=== PATIENT | female | born 1955 | race African-American/Black ===

== ENCOUNTER 2017-01-01 13:07 | Emergency (ER) | payer OTHER ==
[~2017-01-01] VITALS: Ht 165.1 cm; Wt 60.0 kg
[2017-01-01 13:08] VITALS: BP 153/87; PULSE 74; RESP 16; TEMP 98.3; O2SAT 100
[2017-01-01 14:45] VITALS: O2SAT 100
--- NOTE | 2017-01-01 15:35 | RADRPT ---
EXAM DATE/TIME: 01/01/2017 15:08 [facility] COMPARISON: No previous studies available for comparison. INDICATIONS : Chest discomfort. MEDICAL HISTORY : Asthma. SURGICAL HISTORY : None. ENCOUNTER: Initial ACUITY: 2 days PAIN SCORE: 4/10 LOCATION: Bilateral chest FINDINGS: A single view of the chest demonstrates the lungs to be symmetrically aerated without evidence of mas s, infiltrate or effusion. The cardiomediastinal contours are unremarkable. Osseous structures are intact. CONCLUSION: No acute disease. Adelfo Urbina MD on January 01, 2017 at 15:32 Board Certified Radiologist. This report was verified electronically.
[2017-01-01 15:44] LABS: AUTOMATED NEUTROPHIL # 6.7 TH/MM3 (1.8-7.7); BASOPHIL # 0.1 TH/MM3 (0-0.2); BASOPHIL % 1.1 % (0.0-2.0); EOSINOPHIL # 0.1 TH/MM3 (0-0.4); EOSINOPHIL % 0.6 % (0.0-4.0); HEMATOCRIT 38.2 % (35.0-46.0); HEMO FLAGS DIFF FINAL; LYMPH % 23.1 % (9.0-44.0); LYMPHOCYTE # 2.2 TH/MM3 (1.0-4.8); MEAN CELL VOLUME 79.6 FL (80.0-100.0); MEAN CORPUSCULAR HEMOGLOBIN 26.5 PG (27.0-34.0); MEAN CORPUSCULAR HGB CONC 33.3 % (32.0-36.0); MONO % 5.9 % (0.0-8.0); NEUT % 69.3 % (16.0-70.0); PLATELET COUNT 224 TH/MM3 (150-450); RED CELL DISTRIBUTION WIDTH 14.6 % (11.6-17.2); WHITE BLOOD COUNT 9.7 TH/MM3 (4.0-11.0)
--- NOTE | 2017-01-01 16:06 | RADRPT ---
EXAM DATE/TIME: 01/01/2017 15:45 [facility] COMPARISON: No previous studies available for comparison. INDICATIONS : Patient complains of headache and dizziness for 2 days. RADIATION DOSE: 34.49 CTDIvol (mGy) MEDICAL HISTORY : Hypertension. Cardiovascular disease SURGICAL HISTORY : Hysterectomy. fracture of mandible 2005 ENCOUNTER: Initial ACUITY: 2 days PAIN SCALE: 5/10 LOCATION: cranial TECHNIQUE: Multiple contiguous axial images were obtained of the head. Using automated exposure control and adj ustment of the mA and/or kV according to patient size, radiation dose was kept as low as reasonably a chievable to obtain optimal diagnostic quality images. FINDINGS: CEREBRUM: The ventricles are normal for age. No evidence of midline shift, mass lesion, hemorrhage or acute in farction. No extra-axial fluid collections are seen. POSTERIOR FOSSA: The cerebellum and brainstem are intact. The 4th ventricle is midline. The cerebellopontine angle i s unremarkable. EXTRACRANIAL: The visualized portion of the orbits is intact. SKULL: The calvaria is intact. No evidence of skull fracture. CONCLUSION: No acute disease. No evidence of acute infarct, hemorrhage, mass or edema. Adelfo Urbina MD on January 01, 2017 at 16:02 Board Certified Radiologist. This report was verified electronically.
[2017-01-01 16:08] LABS: BACTERIA, URINE RARE /hpf; BLOOD, URINE TRACE (NEG); CALCIUM OXALATE CRYSTALS,URINE OCC /hpf; GLUCOSE,URINE NEG (NEG); KETONE, URINE NEG (NEG); MUCUS URINE FEW /lpf (OCC); NITRITE,URINE NEG (NEG); PH, URINE 6.5 (5.0-8.5); SQUAMOUS EPITHELIAL CELL URINE 7 /hpf (0-5); URINE COLOR YELLOW (YELLW/STRAW)
[2017-01-01 16:09] LABS: COMMENT (UR) CULT NOT INDICATED; CULTURE IF INDICATED CULT NOT INDICATED
[2017-01-01 16:15] LABS: ALT (GPT) 15 U/L (10-53); ANION GAP 7 MEQ/L (5-15); AST (GOT) 10 U/L (15-37); BLOOD UREA NITROGEN 11 MG/DL (7-18); CHLORIDE 107 MEQ/L (98-107); GLOMERULAR FILTRATION RATE 83 ML/MIN (>89); MAGNESIUM 2.2 MG/DL (1.5-2.5); POTASSIUM 3.2 MEQ/L (3.5-5.1); SODIUM (NA) 141 MEQ/L (136-145)
[2017-01-01 16:24] LABS: ALKALINE PHOSPHATASE 89 U/L (45-117); TOTAL BILIRUBIN ADULT 0.5 MG/DL (0.2-1.0)
[2017-01-01 16:26] LABS: CREATINE KINASE 62 U/L (26-192)
--- NOTE | 2017-01-01 16:51 | PD ---
HPI Chief Complaint: Cardiac Complaint Time Seen by Provider: 16:43 Travel History International Travel<30 days: No Contact w/Intl Traveler<30days: No Traveled to known affect area: No History of Present Illness HPI 61-year-old female that presents to the ED for evaluation of palpitations and not wanting to eat. Per patient she's had this for the past 4 days. Per patient she's been having loss of weight for the past 4 days. Per patient she doesn't have an appetite. She denies any pain but she states that she's been feeling like her heart palpitates. Per patient he comes and goes. She does not feel this at this time. She does have a history of hep C but denies any history of heart disease in herself or others. She does not know how she got hep C. She tells me that last time she had a tested she was found to be nondetectable. She takes no medications for it. She denies any drug abuse or alcohol. She denies any abdominal pain. No Diarrhea or nausea or vomiting. Has not seen anybody for this. No fevers chills or sweats. No allergies to medication. She denies any history of heart arrhythmias. She is not taking anything for this. PFSH Past Medical History Hx Anticoagulant Therapy: No Cardiovascular Problems: Yes (HTN ) Diabetes: No Hypertension: Yes Medical other: Yes (HEP C) Past Surgical History Section: Yes Cholecystectomy: Yes Hysterectomy: Yes Other Surgery: Yes (HERNIA SX) Social History Alcohol Use: Yes Tobacco Use: No Substance Use: No Allergies-Medications (Allergen,Severity, Reaction): Coded Allergies: No Known Allergies (Unverified , 01/01/17) Review of Systems Except as stated in HPI: all other systems reviewed are Neg Physical Exam Narrative GENERAL: SKIN: Warm and dry. HEAD: Atraumatic. Normocephalic. EYES: Pupils equal and round. Rectal 4 mms reactive to light and accomodation. No scleral icterus. No injection or drainage. ENT: No nasal bleeding or discharge. Mucous membranes pink and moist. Tongue is midline. No uvula deviation. NECK: Trachea midline. No JVD. CARDIOVASCULAR: Regular rate and rhythm. No murmurs, S3, S4. RESPIRATORY: No accessory muscle use. Clear to auscultation. Breath sounds equal bilaterally. GASTROINTESTINAL: Abdomen soft, non-tender, nondistended. Hepatic and splenic margins not palpable. MUSCULOSKELETAL: Extremities without clubbing, cyanosis, or edema. No obvious deformities. Full range of motion of the upper and lower extremities bilaterally. 2+ pulses bilaterally. NEUROLOGICAL: Awake and alert. No obvious cranial nerve deficits. Motor grossly within normal limits. Five out of 5 muscle strength in the arms and legs. Normal speech. PSYCHIATRIC: Appropriate mood and affect; insight and judgment normal. Data Data Last Documented VS Vital Signs Date Time Temp Pulse Resp B/P Pulse Ox O2 Delivery O2 Flow Rate FiO2 01/01/17 13:08 98.3 74 16 153/87 100 Orders Vascular Access Team Consult/P PRN (01/01/17 14:44) Vascular Poc Ultrasound (01/01/17 ) Electrocardiogram (01/01/17 14:54) Complete Blood Count With Diff (01/01/17 14:54) Comprehensive Metabolic Panel (01/01/17 14:54) Ckmb (Isoenzyme) Profile (01/01/17 14:54) Troponin I (01/01/17 14:54) Prothrombin Time / Inr (Pt) (01/01/17 14:54) Act Partial Throm Time (Ptt) (01/01/17 14:54) Urinalysis - C+S If Indicated (01/01/17 14:54) Magnesium (Mg) (01/01/17 14:54) Thyroid Stimulating Hormone (01/01/17 14:54) Chest, Single Ap (01/01/17 14:54) Iv Access Insert/Monitor (01/01/17 14:54) Ecg Monitoring (01/01/17 14:54) Oximetry (01/01/17 14:54) Ct Brain W/O Iv Contrast(Rout) (01/01/17 ) Labs Laboratory Tests Test 01/01/17 01/01/17 15:10 15:30 White Blood Count 9.7 TH/MM3 Red Blood Count 4.80 MIL/MM3 Hemoglobin 12.7 GM/DL Hematocrit 38.2 % Mean Corpuscular Volume 79.6 FL Mean Corpuscular Hemoglobin 26.5 PG Mean Corpuscular Hemoglobin 33.3 % Concent Red Cell Distribution Width 14.6 % Platelet Count 224 TH/MM3 Mean Platelet Volume 8.3 FL Neutrophils (%) (Auto) 69.3 % Lymphocytes (%) (Auto) 23.1 % Monocytes (%) (Auto) 5.9 % Eosinophils (%) (Auto) 0.6 % Basophils (%) (Auto) 1.1 % Neutrophils # (Auto) 6.7 TH/MM3 Lymphocytes # (Auto) 2.2 TH/MM3 Monocytes # (Auto) 0.6 TH/MM3 Eosinophils # (Auto) 0.1 TH/MM3 Basophils # (Auto) 0.1 TH/MM3 CBC Comment DIFF FINAL Differential Comment Sodium Level 141 MEQ/L Potassium Level 3.2 MEQ/L Chloride Level 107 MEQ/L Carbon Dioxide Level 27.0 MEQ/L Anion Gap 7 MEQ/L Blood Urea Nitrogen 11 MG/DL Creatinine 0.84 MG/DL Estimat Glomerular Filtration 83 ML/MIN Rate Random Glucose 89 MG/DL Calcium Level 9.0 MG/DL Magnesium Level 2.2 MG/DL Total Bilirubin 0.5 MG/DL Aspartate Amino Transf 10 U/L (AST/SGOT) Alanine Aminotransferase 15 U/L (ALT/SGPT) Alkaline Phosphatase 89 U/L Total Creatine Kinase 62 U/L Troponin I LESS THAN 0.02 NG/ML Total Protein 8.3 GM/DL Albumin 4.0 GM/DL Thyroid Stimulating Hormone 0.954 uIU/ML 3rd Gen Urine Color YELLOW Urine Turbidity HAZY Urine pH 6.5 Urine Specific [place] 1.018 Urine Protein TRACE mg/dL Urine Glucose (UA) NEG mg/dL Urine Ketones NEG mg/dL Urine Occult Blood TRACE Urine Nitrite NEG Urine Bilirubin NEG Urine Urobilinogen LESS THAN 2.0 MG/DL Urine Leukocyte Esterase MOD Urine RBC 3 /hpf Urine WBC 6 /hpf Urine Squamous Epithelial 7 /hpf Cells Urine Calcium Oxalate Crystals OCC /hpf Urine Amorphous Sediment RARE Urine Bacteria RARE /hpf Urine Mucus FEW /lpf Microscopic Urinalysis Comment CULT NOT INDICATED MDM Medical Decision Making Medical Screen Exam Complete: Yes Emergency Medical Condition: Yes Medical Record Reviewed: Yes Interpretation(s) EKG here shows sinus rhythm with no sign of acute ischemia or arrhythmia. Read by me and attending. CBC & BMP Diagram 01/01/17 15:10 Troponin and CK negative UA shows UTI LFTS WNL Last Impressions Chest X-Ray 01/01/17 1454 Signed Impressions: Service Date/Time: Sunday, January 01, 2017 15:08 - CONCLUSION: No acute disease. Adelfo Urbina MD Head CT 01/01/17 0000 Signed Impressions: Service Date/Time: Sunday, January 01, 2017 15:45 - CONCLUSION: No acute disease. No evidence of acute infarct, hemorrhage, mass or edema. Adelfo Urbina MD Differential Diagnosis Generalized weakness versus UTI versus viral illness versus palpitations versus electrolyte abnormality versus dehydration versus atrial fibrillation Narrative Course 61-year-old female that presents to the ED for eval of palpitations and loss of appetite. Patient was properly examined and was found to have signs and symptoms of unclear etiology. Patient EKG as well as evaluation of being on monitor revealed no sign of arrhythmia. Patient complains of no pain or any other symptoms. Labs and imaging were ordered. Labs and imaging were essentially unremarkable. Urine did show UTI and this could be related to the symptoms. Patient was told this and agrees with plan. At this time we'll treat her symptoms with Bactrim for her urinary tract infection. She was told to follow with local physician. See ED if worsening symptoms. Case was discussed in my attending Dr Robins who agrees with plan. Diagnosis Primary Impression: UTI (urinary tract infection) Qualified Code: N30.01 - Acute cystitis with hematuria Patient Instructions: General Instructions Additional Instructions: Follow with PCP. Take medications as prescribed. Drink plenty of fluids. See ED for worsening symptoms. Med/Other Pt SpecificInfo: Prescription(s) given Disposition: 01 DISCHARGE HOME Condition: Stable Terry Ann Jan 01, 2017 16:51
[2017-01-01] MEDS ORDERED: AMLO10 PO (16:53)
[2017-01-01] MEDS ORDERED: CLON0.2T PO (16:53)
[2017-01-01] MEDS ORDERED: TRAZ50TA12 PO (16:53)
[2017-01-01] MEDS ORDERED: BACT800T5 PO (17:03)
[2017-01-01 17:10] LABS: APTT (PATIENT) 25.2 SEC (24.3-30.1); PROTHROMBIN TIME - PATIENT 10.8 SEC (9.8-11.6)
--- NOTE | 2017-01-01 18:09 | EKG ---
Date Performed: 01/01/2017 Time Performed: 14:28:36 PTAGE: 61 years EKG: Sinus rhythm WITH SHORT NV INTERVAL BORDERLINE ECG NO PREVIOUS TRACING DOCTOR: Dax Ponce Interpretating Date/Time 01/01/2017 18:07:50
== END 2017-01-01 17:48 | disposition home or self-care (01) ==
LOC: NEPC 13:07
DX: N30.01 Acute cystitis with hematuria (principal); R00.2 Palpitations; R63.0 Anorexia; R94.31 Abnormal electrocardiogram [ECG] [EKG]; I10 Essential (primary) hypertension; Z86.79 Personal history of other diseases of the circulatory system; Z86.19 Personal history of other infectious and parasitic diseases
CPT/HCPCS: 70450; 71010; 80053; 81001; 82550; 83735; 84443; 84484; 85025; 85610; 85730; 93005

== ENCOUNTER 2017-04-14 10:54 | Emergency (ER) | payer MEDICAID, OTHER ==
[~2017-04-14] VITALS: Ht 165.1 cm; Wt 68.0 kg
[~2017-04-14 10:54] MED LIST: AMLO10 PO; BACT800T5 PO; CLON0.2T PO; TRAZ50TA12 PO
[2017-04-14 10:56] VITALS: BP 187/90; PULSE 76; RESP 20; TEMP 98.5; O2SAT 100
[2017-04-14] MEDS ORDERED: PERC5TAB12 PO (12:35)
[2017-04-14] MEDS ORDERED: IBUP-232 PO (12:35)
--- NOTE | 2017-04-14 12:35 | PD ---
HPI Chief Complaint: Fall Time Seen by Provider: 12:14 Travel History International Travel<30 days: No Contact w/Intl Traveler<30days: No Traveled to known affect area: No History of Present Illness HPI Patient 61 years old. She reports a fall approximately one week ago having slipped on water. She landed on her right hip and on the right head. She's had no headache nausea vomiting visual change or weakness. She does complain of pain radiating down the right leg. She has been ambulatory. Leg pain is worse with ambulation. No additional complaint. PFSH Past Medical History Hx Anticoagulant Therapy: No Cardiovascular Problems: Yes Diabetes: No Hypertension: Yes Past Surgical History Section: Yes Cholecystectomy: Yes Hysterectomy: Yes Other Surgery: Yes (HERNIA SX) Social History Alcohol Use: No Tobacco Use: No Substance Use: No Allergies-Medications (Allergen,Severity, Reaction): Coded Allergies: Penicillins (Verified Allergy, Severe, Itching, 04/14/17) ceftriaxone (Verified Allergy, Severe, Itching, 04/14/17) erythromycin base (Verified Allergy, Severe, Nausea/Vomiting, 04/14/17) Reported Meds & Prescriptions Reported Meds & Active Scripts Active Ibuprofen 600 Mg Tab 600 Mg PO Q8HR PRN Percocet (Oxycodone-Acetaminophen) 5-325 mg Tab 2 Tab PO Q6H PRN Reported Trazodone (Trazodone HCl) 50 Mg Tab 50 Mg PO HS Norvasc (Amlodipine Besylate) 10 Mg Tab 10 Mg PO DAILY Clonidine (Clonidine HCl) 0.2 Mg Tab 0.2 Mg PO DAILY Review of Systems Except as stated in HPI: all other systems reviewed are Neg General / Constitutional: No: Fever Physical Exam Narrative GENERAL: 61-year-old female no acute distress SKIN: Warm and dry. HEAD: Atraumatic. Normocephalic. EYES: Pupils equal and round. No scleral icterus. No injection or drainage. ENT: No nasal bleeding or discharge. Mucous membranes pink and moist. NECK: Trachea midline. No JVD. CARDIOVASCULAR: Regular rate and rhythm. RESPIRATORY: No accessory muscle use. Clear to auscultation. Breath sounds equal bilaterally. GASTROINTESTINAL: Abdomen soft, non-tender, nondistended. Hepatic and splenic margins not palpable. MUSCULOSKELETAL: Extremities without clubbing, cyanosis, or edema. No obvious deformities. Minimal tenderness to palpation overlying the right iliac crest. NEUROLOGICAL: Awake and alert. No obvious cranial nerve deficits. Motor grossly within normal limits. Five out of 5 muscle strength in the arms and legs. Normal speech. PSYCHIATRIC: Appropriate mood and affect; insight and judgment normal. Data Data Last Documented VS Vital Signs Date Time Temp Pulse Resp B/P (MAP) Pulse Ox O2 Delivery O2 Flow Rate FiO2 04/14/17 12:50 04/14/17 10:56 98.5 76 20 100 Room Air Blood pressure 187/90 Orders Orders Ibuprofen (Motrin) (04/14/17 12:45) MDM Medical Decision Making Medical Screen Exam Complete: Yes Emergency Medical Condition: Yes Medical Record Reviewed: Yes Differential Diagnosis Fracture, sciatica, intracranial hemorrhage Narrative Course Patient's primary complaint is the right leg sciatica. She is stable for discharge. Diagnosis Primary Impression: Sciatica of right side Additional Instructions: You have a choice when it comes to health care, and we are glad that you chose [facility]. Hopefully, we have met your expectations on today's visit. You are welcome to return to [facility] at any time, as we are committed to meeting the health care needs of our community. Med/Other Pt SpecificInfo: Prescription(s) given Scripts Ibuprofen (Ibuprofen) 600 Mg Tab 600 MG PO Q8HR Y for PAIN SCALE 5 TO 10, #30 TAB 0 Refills Prov: Samy Platt MD 04/14/17 Oxycodone-Acetaminophen (Percocet) 5-325 mg Tab 2 TAB PO Q6H Y for PAIN SCALE 6 TO 10, #12 TAB 0 Refills Prov: Samy Platt MD 04/14/17 Disposition: 01 DISCHARGE HOME Condition: Stable Samy Platt MD Apr 14, 2017 12:35
[2017-04-14] MEDS ORDERED: IBUPROFEN 600 MG TAB PO ONE (12:45)
== END 2017-04-14 14:29 | disposition home or self-care (01) ==
LOC: NEPD 10:54
DX: M54.31 Sciatica, right side (principal)
CPT/HCPCS: 99283

== ENCOUNTER 2017-11-01 14:27 | Emergency (ER) | payer MEDICAID ==
[~2017-11-01 14:27] MED LIST changes: -BACT800T5 PO; +IBUP-232 PO; +PERC5TAB12 PO
[2017-11-01 14:30] VITALS: BP 214/107; PULSE 124; RESP 20; TEMP 98.7; O2SAT 99
[2017-11-01] MEDS ORDERED: SODIUM CHLOR 0.9% 1000 ML INJ 1,000 ML IV SCH (14:55)
[2017-11-01] MEDS ORDERED: MORPHINE SULFATE 4 MG/ML INJ IV PUSH ONE (15:00)
[2017-11-01] MEDS ORDERED: SODIUM CHLORIDE 0.9% FLUSH 10 ML FLUSH IV FLUSH PRN (15:00)
[2017-11-01] MEDS ORDERED: ONDANSETRON HCL 4 MG/2 ML VIAL IVP ONE (15:00)
--- NOTE | 2017-11-01 15:36 | PD ---
HPI Chief Complaint: GI Complaint Time Seen by Provider: 14:39 Travel History International Travel<30 days: No Contact w/Intl Traveler<30days: No Traveled to known affect area: No History of Present Illness HPI 62-year-old female with PMH of hypertension, presents to the ED for evaluation of 2 week history of difficulties with swallowing. Patient states that initially she would have intermittent pain but was able to swallow solids and fluids. She states that over the last 24-48 hours she has severe 10/10 sharp pain and immediately regurgitates any solids or liquids that she attempts to consume. She denies hematemesis. She denies chest pain, palpitations, shortness of breath. She endorses abdominal bloating, states she had a small, solid, nonbloody bowel movement this morning. She denies dysuria, hematuria, lower extremity edema. She endorses distant history of colonoscopy. She has never had an EGD. No treatment attempted at home. She endorses history of hepatitis C, states that she was treated 4 years ago" has undetectable levels." PFSH Past Medical History Hx Anticoagulant Therapy: No Cardiovascular Problems: Yes Diabetes: No Hypertension: Yes Past Surgical History Section: Yes Cholecystectomy: Yes Hysterectomy: Yes Other Surgery: Yes (HERNIA SX) Social History Alcohol Use: No Tobacco Use: No Substance Use: No Allergies-Medications (Allergen,Severity, Reaction): Coded Allergies: Penicillins (Verified Allergy, Severe, Itching, 04/14/17) ceftriaxone (Verified Allergy, Severe, Itching, 04/14/17) erythromycin base (Verified Allergy, Severe, Nausea/Vomiting, 04/14/17) Reported Meds & Prescriptions Reported Meds & Active Scripts Active Bisacodyl EC (Bisacodyl) 5 Mg Tabec 5 Mg PO DAILY PRN Ingraham (Hydrocodone-Acetaminophen) 5 Mg-325 Mg Tab 1 Tab PO Q6H PRN Omeprazole 20 Mg Tab 20 Mg PO DAILY Ibuprofen 600 Mg Tab 600 Mg PO Q8HR PRN Percocet (Oxycodone-Acetaminophen) 5-325 mg Tab 2 Tab PO Q6H PRN Reported Trazodone (Trazodone HCl) 50 Mg Tab 50 Mg PO HS Norvasc (Amlodipine Besylate) 10 Mg Tab 10 Mg PO DAILY Clonidine (Clonidine HCl) 0.2 Mg Tab 0.2 Mg PO DAILY Review of Systems Except as stated in HPI: all other systems reviewed are Neg Physical Exam Narrative GENERAL: Well-nourished, well-developed female in no acute distress. SKIN: Focused skin assessment warm, diaphoretic HEAD: Normocephalic. EYES: No scleral icterus. No injection or drainage. NECK: Supple, trachea midline. No JVD or lymphadenopathy. CARDIOVASCULAR: Regular rate and rhythm without murmurs, gallops, or rubs. CHEST: Tender to palpation of her the left and right lower chest. Without deformity or crepitus. No retractions or use of accessory muscles. RESPIRATORY: Breath sounds clear and equal bilaterally. No accessory muscle use. GASTROINTESTINAL: Abdomen soft, nondistended. Tender to palpation in the epigastric region. No palpable masses. Active bowel sounds. MUSCULOSKELETAL: No cyanosis, or edema. BACK: Nontender without obvious deformity. No CVA tenderness. Data Data Last Documented VS Vital Signs Date Time Temp Pulse Resp B/P (MAP) Pulse Ox O2 Delivery O2 Flow Rate FiO2 11/01/17 18:49 11/01/17 17:34 82 18 100 Room Air 11/01/17 14:30 98.7 Orders Orders Complete Blood Count With Diff (11/01/17 14:55) Comprehensive Metabolic Panel (11/01/17 14:55) Lipase (11/01/17 14:55) Prothrombin Time / Inr (Pt) (11/01/17 14:55) Act Partial Throm Time (Ptt) (11/01/17 14:55) Iv Access Insert/Monitor (11/01/17 14:55) Ecg Monitoring (11/01/17 14:55) Oximetry (11/01/17 14:55) Morphine Inj (Morphine Inj) (11/01/17 15:00) Ondansetron Inj (Zofran Inj) (11/01/17 15:00) Sodium Chlor 0.9% 1000 Ml Inj (Ns 1000 M (11/01/17 14:55) Sodium Chloride 0.9% Flush (Ns Flush) (11/01/17 15:00) Gastrografin Swallow (11/01/17 ) Electrocardiogram (11/01/17 ) Chest, Single Ap (11/01/17 ) Troponin I (11/01/17 14:55) Diatrizoate Liq ( Gastroview Liq) (11/01/17 16:30) Ranitidine Liq (Zantac Liq) (11/01/17 17:15) Famotidine (Pepcid) (11/01/17 17:45) Ed Discharge Order (11/01/17 18:10) Morphine Inj (Morphine Inj) (11/01/17 18:15) Labs Laboratory Tests Test 11/01/17 13:30 White Blood Count 10.1 TH/MM3 Red Blood Count 4.74 MIL/MM3 Hemoglobin 12.7 GM/DL Hematocrit 38.4 % Mean Corpuscular Volume 81.0 FL Mean Corpuscular Hemoglobin 26.7 PG Mean Corpuscular Hemoglobin Concent 32.9 % Red Cell Distribution Width 15.0 % Platelet Count 233 TH/MM3 Mean Platelet Volume 8.1 FL Neutrophils (%) (Auto) 78.5 % Lymphocytes (%) (Auto) 13.5 % Monocytes (%) (Auto) 5.9 % Eosinophils (%) (Auto) 1.7 % Basophils (%) (Auto) 0.4 % Neutrophils # (Auto) 7.9 TH/MM3 Lymphocytes # (Auto) 1.4 TH/MM3 Monocytes # (Auto) 0.6 TH/MM3 Eosinophils # (Auto) 0.2 TH/MM3 Basophils # (Auto) 0.0 TH/MM3 CBC Comment DIFF FINAL Differential Comment Prothrombin Time 10.0 SEC Prothromb Time International Ratio 1.0 RATIO Activated Partial Thromboplast Time 24.5 SEC Blood Urea Nitrogen 10 MG/DL Creatinine 0.95 MG/DL Random Glucose 102 MG/DL Total Protein 8.2 GM/DL Albumin 3.8 GM/DL Calcium Level 8.7 MG/DL Alkaline Phosphatase 93 U/L Aspartate Amino Transf (AST/SGOT) 16 U/L Alanine Aminotransferase (ALT/SGPT) 20 U/L Total Bilirubin 0.3 MG/DL Sodium Level 142 MEQ/L Potassium Level 3.6 MEQ/L Chloride Level 107 MEQ/L Carbon Dioxide Level 28.5 MEQ/L Anion Gap 7 MEQ/L Estimat Glomerular Filtration Rate 72 ML/MIN Troponin I LESS THAN 0.02 NG/ML Lipase 75 U/L MDM Medical Decision Making Medical Screen Exam Complete: Yes Emergency Medical Condition: Yes Differential Diagnosis Esophageal dysmotility versus esophageal foreign body versus Schatzki ring versus hiatal hernia versus GERD versus other Narrative Course 62-year-old female with PMH of hypertension, presents to the ED for evaluation of 2 week history of difficulties with swallowing. Patient states that initially she would have intermittent pain but was able to swallow solids and fluids. She states that over the last 24-48 hours she has severe 10/10 sharp pain and immediately regurgitates any solids or liquids that she attempts to consume. She denies hematemesis, CP, SOB. She has never had an EGD. No treatment attempted at home. She endorses history of hepatitis C, states that she was treated 4 years ago" has undetectable levels." BP 214/107, pulse 124 in triage, this improves to pulse of 82, BP 141/85 in the exam room. On exam she has epigastric tenderness to palpation but it is otherwise unremarkable. Patient was administered 1 L normal saline, 4 mg Zofran, 4 mg morphine, 150 mg grams Zantac IV. EKG rate 79, sinus rhythm. MD interval 134, QRS 90, QTc 432 ms. Normal axis. No acute ST changes. Reviewed by Dr. Ibarra CXR: No acute cardia pulmonary disease. Cardiac enzymes negative 1. Gastrografin swallow: Minimal distal esophageal fold thickening raising the possibility of minimal esophagitis. GERD noted. CBC, CMP, coags without concerning abnormalities Discussed the results of the workup with the patient. On recheck she reports improvement but not resolution of her symptoms. She was administered 20 mg of Pepcid and 2 mg morphine. She is instructed to follow-up with the [facility] urologist. She is provided a brief course of Ingraham, omeprazole, bisacodyl. She was provided gastritis diet information. She indicated understanding of the instructions. She is stable and discharged home. Diagnosis Primary Impression: GERD (gastroesophageal reflux disease) Qualified Codes: K21.0 - Gastro-esophageal reflux disease with esophagitis Referrals: Ita Reina MD Patient Instructions: Diet for Stomach Ulcers and Gastritis (ED), Gastroesophageal Reflux Disease (ED), General Instructions Additional Instructions: Rest, hydrate. Begin omeprazole as prescribed. Eat a bland diet for the next few days and gradually reintroduce new foods. Follow-up with the bellhop service captain as discussed. Return to the ED for worsening symptoms or any urgent or emergent medical condition. Med/Other Pt SpecificInfo: Prescription(s) given Scripts Bisaconafisa GARCÍA (Bisacodyl EC) 5 Mg Tabec 5 MG PO DAILY Y for CONSTIPATION, #10 TAB 0 Refills Prov: Shilpa Ibarra MD 11/01/17 Hydrocodone-Acetaminophen (Ingraham) 5 Mg-325 Mg Tab 1 TAB PO Q6H Y for PAIN, #12 TAB 0 Refills Prov: Shilpa Ibarra MD 11/01/17 Omeprazole (Omeprazole) 20 Mg Tab 20 MG PO DAILY, #30 TAB 0 Refills Prov: Shilpa Ibarra MD 11/01/17 Disposition: 01 DISCHARGE HOME Condition: Stable Ema Gonzales Nov 01, 2017 15:36
[2017-11-01 15:49] LABS: AUTOMATED NEUTROPHIL # 7.9 TH/MM3 (1.8-7.7); BASOPHIL % 0.4 % (0.0-2.0); EOSINOPHIL # 0.2 TH/MM3 (0-0.4); EOSINOPHIL % 1.7 % (0.0-4.0); HEMATOCRIT 38.4 % (35.0-46.0); HEMOGLOBIN 12.7 GM/DL (11.6-15.3); LYMPH % 13.5 % (9.0-44.0); LYMPHOCYTE # 1.4 TH/MM3 (1.0-4.8); MEAN CORPUSCULAR HEMOGLOBIN 26.7 PG (27.0-34.0); MEAN CORPUSCULAR HGB CONC 32.9 % (32.0-36.0); MEAN PLATELET VOLUME 8.1 FL (7.0-11.0); MONO % 5.9 % (0.0-8.0); MONOCYTE # 0.6 TH/MM3 (0-0.9); NEUT % 78.5 % (16.0-70.0); PLATELET COUNT 233 TH/MM3 (150-450); RED BLOOD COUNT 4.74 MIL/MM3 (4.00-5.30); WHITE BLOOD COUNT 10.1 TH/MM3 (4.0-11.0)
[2017-11-01 16:17] LABS: ALBUMIN 3.8 GM/DL (3.4-5.0); ALT (GPT) 20 U/L (10-53); AST (GOT) 16 U/L (15-37); BICARBONATE 28.5 MEQ/L (21.0-32.0); BLOOD UREA NITROGEN 10 MG/DL (7-18); CALCIUM 8.7 MG/DL (8.5-10.1); CHLORIDE 107 MEQ/L (98-107); CREATININE 0.95 MG/DL (0.50-1.00); GLOMERULAR FILTRATION RATE 72 ML/MIN (>89); GLUCOSE,RANDOM 102 MG/DL (74-106); SODIUM (NA) 142 MEQ/L (136-145)
[2017-11-01 16:22] LABS: ALKALINE PHOSPHATASE 93 U/L (45-117); TOTAL BILIRUBIN ADULT 0.3 MG/DL (0.2-1.0); TOTAL PROTEIN 8.2 GM/DL (6.4-8.2); TROPONIN I LESS THAN 0.02 NG/ML (0.02-0.05)
[2017-11-01] MEDS ORDERED: DIATRIZOATE MEGLUM/DIATRIZOATE SOD 120 ML BTL (for RAD DIAG) PO ONE (16:30)
[2017-11-01 16:42] VITALS: O2SAT 97
--- NOTE | 2017-11-01 16:50 | RADRPT ---
EXAM DATE/TIME: 11/01/2017 15:56 [facility] COMPARISON: CHEST SINGLE AP, January 01, 2017, 15:08. INDICATIONS : Chest pain. MEDICAL HISTORY : Hypertension. Cardiovascular disease SURGICAL HISTORY : Hysterectomy. fracture of mandible 2005 ENCOUNTER: Initial ACUITY: 1 day PAIN SCORE: 0/10 LOCATION: Bilateral chest FINDINGS: A single view of the chest demonstrates the lungs to be symmetrically aerated without evidence of mas s, infiltrate or effusion. The cardiomediastinal contours are unremarkable. Osseous structures are intact. CONCLUSION: 1. No acute cardiopulmonary disease. Amadou Graf MD on November 01, 2017 at 16:48 Board Certified Radiologist. This report was verified electronically.
--- NOTE | 2017-11-01 16:57 | RADRPT ---
EXAM DATE/TIME: 11/01/2017 16:10 [facility] COMPARISON: No previous studies available for comparison. INDICATIONS : Evaluate for dysphagia. FLUORO TIME: 1.8 minutes IMAGE COUNT: 28 CONTRAST: 1. Gastrografin (Diatrizoate Meglumine and Diatrizoate Sodium) Liquid E-Z Paque Barium Sulfate (60% w/v, 41% w.w) MEDICAL HISTORY : Hypertension. Cardiovascular disease SURGICAL HISTORY : Hysterectomy. fracture of mandible 2005 ENCOUNTER: Initial ACUITY: 1 day PAIN SCORE: 0/10 LOCATION: Chest. FINDINGS: Both Gastrografin and barium were given to the patient for evaluation of the esophagus. There is mini mal distal esophageal fold thickening raising the possibility of minimal esophagitis. Gastroesophagea l reflux is noted. No distal esophageal mass is noted. CONCLUSION: 1. Minimal distal esophageal fold thickening raising the possibility of minimal esophagitis. 2. Gastroesophageal reflux is noted. Wilman Beasley MD on November 01, 2017 at 16:51 Board Certified Radiologist. This report was verified electronically.
[2017-11-01] MEDS ORDERED: OMEP20TA93 PO (17:10)
[2017-11-01] MEDS ORDERED: RANITIDINE HCL SYRUP 150 MG/10 ML UDC PO ONE (17:15)
[2017-11-01 17:34] VITALS: BP 141/85; PULSE 82; RESP 18; O2SAT 100
[2017-11-01] MEDS ORDERED: FAMOTIDINE 20 MG TAB PO ONE (17:45)
[2017-11-01] MEDS ORDERED: MORPHINE SULFATE 2 MG/ML SYRINGE IV PUSH ONE (18:15)
[2017-11-01] MEDS ORDERED: NORC5TAB PO (18:22)
[2017-11-01] MEDS ORDERED: FLEE5TAB PO (18:22)
--- NOTE | 2017-11-02 16:48 | EKG ---
Date Performed: 11/01/2017 Time Performed: 15:48:16 PTAGE: 62 years EKG: Sinus rhythm NORMAL ECG Since the PREVIOUS TRACING , no significant change noted PREVIOUS TRACIN01/01/2017 14.28 DOCTOR: Elsa Urbina Interpretating Date/Time 11/02/2017 16:47:17
== END 2017-11-01 19:25 | disposition home or self-care (01) ==
LOC: NEPE 14:27
DX: K21.0 Gastro-esophageal reflux disease with esophagitis (principal); I10 Essential (primary) hypertension; B19.20 Unspecified viral hepatitis C without hepatic coma; Z88.1 Allergy status to other antibiotic agents; Z88.0 Allergy status to penicillin
CPT/HCPCS: 71045; 74220; 80053; 83690; 84484; 85025; 85610; 85730; 93005; 96361; 96374; 96375; 96376; 99285; J2270; J2405; J7030; Q9963

== ENCOUNTER 2018-03-14 02:59 | Observation (INO) ==
[2018-03-14 03:49] LABS: Baso # (Auto) 0.1 th/mm3 (0.0-0.2); Baso % (Auto) 0.7 % (0.0-2.0); Eos # (Auto) 0.3 th/mm3 (0.0-0.4); Eos % (Auto) 2.8 % (0.0-4.0); Hematocrit 30.6 % (35.0-46.0); Hemoglobin 10.6 gm/dL (11.6-15.3); Lymph # (Auto) 1.4 th/mm3 (1.0-4.8); Lymph % (Auto) 15.4 % (9.0-44.0); Mean Corpuscular HGB Conc 34.7 % (32.0-36.0); Mean Corpuscular Hemoglobin 27.7 pg (27.0-34.0); Mean Corpuscular Volume 79.9 fL (80.0-100.0); Mean Platelet Volume 7.4 fL (7.0-11.0); Mono # (Auto) 1.1 th/mm3 (0.0-0.9); Mono % (Auto) 11.4 % (0.0-8.0); Neut # (Auto) 6.6 th/mm3 (1.8-7.7); Neut % (Auto) 69.7 % (16.0-70.0); Platelet Count 266 th/mm3 (150-450); Red Blood Count 3.83 mil/mm3 (4.00-5.30); Red Cell Distribution Width 13.9 % (11.6-17.2); White Blood Count 9.4 th/mm3 (4.0-11.0)
[2018-03-14] MEDS ORDERED: Morphine Sulfate Inj 2 MG/ML Vial IV.PUSH ONE (03:54)
[2018-03-14] MEDS ORDERED: Sod Chloride 0.9% Inj 1,000 ML IV.SIG SCH (04:00)
[2018-03-14 04:05] LABS: Alanine Aminotransferase 20 U/L (10-53); Albumin 3.2 g/dL (3.4-5.0); Anion Gap 10 meq/L (5-15); Aspartate Aminotransferase 16 U/L (15-37); Blood Urea Nitrogen 11 mg/dL (7-18); Calcium 8.6 mg/dL (8.5-10.1); Carbon Dioxide 27.5 meq/L (21.0-32.0); Chloride 106 meq/L (98-107); Glomerular Filtration Rate 84 mL/min (>89); Glucose,Random 108 mg/dL (74-106); Lipase 68 U/L (73-393); Potassium 3.6 meq/L (3.5-5.1); Sodium 143 meq/L (136-145)
[2018-03-14 04:09] LABS: Alkaline Phosphatase 110 U/L (45-117); Total Protein 7.9 g/dL (6.4-8.2)
--- NOTE | 2018-03-14 04:39 | ED ---
HPI General Chief Complaint: Abdominal Pain Stated Complaint: ABD Pain/Evac Time Seen by Provider: 03/14/18 03:25 Source: patient Mode of arrival: ambulatory History of Present Illness HPI narrative: 62-year-old woman who presents to ED with 5 days of gradually worsening abdominal pains. Present in the periumbilical location pain is started to radiate to the left flank. It is associated with constipation and the patient states that she has not had a full bowel movement in at least 7-10 days although she reports still passing gas and having small bowel movements. No nausea or vomiting. Pain is constant but the severity will wax and wane with the pain occasionally becoming very intense before it subsides. No chest pain or dyspnea. No hematuria, hematochezia, hematemesis. No urinary frequency or dysuria. MD complaint: abdominal pain Onset (ago): day(s) (five) Pain Consistency: constant and colicky Location: periumbilical Severity: severe Quality: cramping and sharp Radiation: L flank Associated symptoms: constipation Related Data Home Medications Medication Instructions Recorded Confirmed amlodipine [Norvasc] 10 mg PO DAILY 03/14/18 03/14/18 clonidine HCl 0.2 mg PO TID 03/14/18 03/14/18 Allergies Allergy/AdvReac Type Severity Reaction Status Date / Time ceftriaxone Allergy Severe Itching Verified 04/14/17 11:17 erythromycin base Allergy Severe Nausea/Vomi Verified 04/14/17 11:17 ting Penicillins Allergy Severe Itching Verified 04/14/17 11:17 Review of Systems ROS: all other systems reviewed are negative Gastrointestinal Reports abdominal pain, Denies melena, Denies hematochezia, Reports constipation , Reports cramping, Denies diarrhea, Denies loose stools, Denies nausea, Denies vomiting and Denies hematemesis [facility] Medical History Medical History Hernia, inguinal (Acute) Hypertension (Acute) Wrist fracture (Acute) Surgical History Surgical History History of mandibular surgery (Acute) Hx of section (Acute) Social History Social History Substance History: No History of Abuse Smoking Status: Current every day smoker Tobacco Type: Cigarettes How Often Do You Have a Drink Containing Alcohol: Never Recent Travel in [facility] within the Last 8 Weeks: No Immunization History Tetanus Immunization: Unsure Hx Influenza Vaccine This Season: No Exam Narrative Exam Narrative: GENERAL: 62-year-old woman lying on stretcher with grimace of pain on her face. No companions at bedside at time of my exam. SKIN: Focused skin assessment warm/dry. HEAD: Atraumatic. Normocephalic. EYES: Pupils equal and round. No scleral icterus. No injection or drainage. ENT: No nasal bleeding or discharge. Mucous membranes pink and moist. NECK: Trachea midline. No JVD. CARDIOVASCULAR: Regular rate and rhythm. No murmur appreciated. RESPIRATORY: No accessory muscle use. Clear to auscultation. Breath sounds equal bilaterally. GASTROINTESTINAL: Abdomen soft, no significant tenderness on palpation, patient subjective Vitaliy reported pain seems out of proportion with that found on exam, nondistended. Hepatic and splenic margins not palpable. MUSCULOSKELETAL: No obvious deformities. No clubbing. No cyanosis. No edema. NEUROLOGICAL: Awake and alert. No obvious cranial nerve deficits. Motor grossly within normal limits. Normal speech. PSYCHIATRIC: Appropriate mood and affect; insight and judgment normal. Course Reevaluation(s) Reevaluation #1: Patient's pain improved after medication. Awaiting results of CTA for blood lactate was negative. Time: 05:32 Reevaluation #2: Discussed results of CT and labs with patient. Patient states her pain is somewhat improved but still present and she is hesitant to go home because she does not think she can control the pain at all. Discussed at length recommendation that she try laxatives to help reduce the stool in her colon and that it was very important that she follow-up with her primary care doctor to get a colonoscopy. Told patient that the lesion in her colon is most likely cancer and therefore colonoscopy would be the method to diagnose it. Also informed patient that any delay care results in poor outcomes. Time: 06:01 Consultations Consultation #1: Spoke with Dr. Uriel Mcelroy's regarding patient's case. She will admit patient for treatment of intractable abdominal pain likely secondary to what appears to be a colon cancer with associated constipation. Time: 06:09 Initial Documented Vital Signs Temperature 99.1 F 03/14/18 03:08 Pulse Rate 94 H 03/14/18 03:08 Respiratory Rate 18 03/14/18 03:08 Blood Pressure 158/77 H 03/14/18 03:08 Pulse Oximetry 99 03/14/18 03:08 Last Documented Vital Signs Temperature 99.1 F 03/14/18 03:08 Pulse Rate 86 03/14/18 05:30 Respiratory Rate 18 03/14/18 05:30 Blood Pressure 151/72 H 03/14/18 05:30 Pulse Oximetry 96 03/14/18 05:30 Medical Decision Making MDM Narrative Medical decision making narrative: Elderly woman who presents with colicky periumbilical plate pain that is now radiating to the left flank this is been building over the course of at least 5-7 days and is associated with constipation over however she is still passing gas and passing small amounts of stool so I doubt small bowel obstruction. Abdominal exam demonstrates no signs of peritonitis and in fact her subjective report of pain seems out of proportion to the tenderness observed on my exam; therefore, I will order a CTA of the abdominal arteries to evaluate for mesenteric ischemia also order lactic acid measurements. It is possible that the patient's symptoms patient of ACS, but I think this is less likely intra-abdominal cause, perhaps even just constipation. However will obtain ECG and troponin measurement. Treat patient' s pain with IV morphine and treat patient's nausea with Zofran give fluids IV bolus Medical Screen Exam Complete: Yes Emergency Medical Condition: Yes Differential Diagnosis Differential Diagnosis: Mesenteric ischemia versus constipation versus partial SBO versus colonic obstruction versus atypical presentation of ACS Lab Data Result diagrams: 03/14/18 03:37 03/14/18 03:37 Lab Results 03/14/18 03/14/18 03/14/18 Range/Units 03:37 03:37 03:37 WBC 9.4 (4.0-11.0) th/mm3 RBC 3.83 L (4.00-5.30) mil/mm3 Hgb 10.6 L (11.6-15.3) gm/dL Hct 30.6 L (35.0-46.0) % MCV 79.9 L (80.0-100.0) fL MCH 27.7 (27.0-34.0) pg MCHC 34.7 (32.0-36.0) % RDW 13.9 (11.6-17.2) % Plt Count 266 (150-450) th/mm3 MPV 7.4 (7.0-11.0) fL Neut % (Auto) 69.7 (16.0-70.0) % Lymph % (Auto) 15.4 (9.0-44.0) % [place] % (Auto) 11.4 H (0.0-8.0) % Eos % (Auto) 2.8 (0.0-4.0) % Baso % (Auto) 0.7 (0.0-2.0) % Neut # (Auto) 6.6 (1.8-7.7) th/mm3 Lymph # (Auto) 1.4 (1.0-4.8) th/mm3 [place] # (Auto) 1.1 H (0.0-0.9) th/mm3 Eos # (Auto) 0.3 (0.0-0.4) th/mm3 Baso # (Auto) 0.1 (0.0-0.2) th/mm3 WBC Differential . Differential Comment Auto diff final Sodium 143 (136-145) meq/L Potassium 3.6 (3.5-5.1) meq/L Chloride 106 (98-107) meq/L Carbon Dioxide 27.5 (21.0-32.0) meq/L Anion Gap 10 (5-15) meq/L BUN 11 (7-18) mg/dL Creatinine 0.83 (0.50-1.00) mg/dL Estimated GFR 84 L (>89) mL/min Random Glucose 108 H (74-106) mg/dL Lactic Acid 1.1 (0.4-2.0) mmol/L Calcium 8.6 (8.5-10.1) mg/dL Total Bilirubin 0.3 (0.2-1.0) mg/dL AST 16 (15-37) U/L ALT 20 (10-53) U/L Alkaline Phosphatase 110 (45-117) U/L Troponin I Less than 0.02 L (0.02-0.05) ng/mL Total Protein 7.9 (6.4-8.2) g/dL Albumin 3.2 L (3.4-5.0) g/dL Lipase 68 L (73-393) U/L Imaging Data Radiologist's impression: Abdomen CTA 03/14/18 03:56 CONCLUSION: 1. Large amount of stool in the ascending and transverse portions of the colon with a discrete transition at the splenic flexure. Descending colon is decompressed. No obvious mass lesion. Endoscopy may be warranted for further evaluation of this region. 2. I do not see CT findings of mesenteric ischemia. There may be mild impression of the median arcuate ligament on the central portion of the celiac axis but the celiac, SMA and RAMONITA are all patent. 3. 3.9 cm right adnexal cyst. In a 62-year-old woman, this warrants follow-up. I would recommend a pelvic ultrasound in 3 months to ensure stability. ECG Data Attestation: I personally reviewed and interpreted this ECG as follows: Interpretation: Rate 88 bpm rhythm normal sinus, VA interval 148 ms, QRS interval 102 ms, QTc interval 414 ms, no significant ST depression or elevation , no T-wave changes observed, this ECG is not consistent with STEMI. Discharge Plan Discharge Disposition Patient Disposition: 30 Still Patient Discharge Condition Condition: Fair Discharge Details Diagnosis: Intractable abdominal pain, Constipation, Lesion of colon Physicians Team ED Provider: Reynaldo Alarcon Attending Provider: Maddy Wiley Rxs /Orders / Referrals /Forms Prescriptions: No Action clonidine HCl 0.2 mg Tablet 0.2 mg PO TID RF: 0 amlodipine [Norvasc] 10 mg Tablet 10 mg PO DAILY RF: 0 Discharge Interventions Interventions: Vital Signs Last Done: 03/14/18 05:30 Status ED Status: Admitted Observation Patient
--- NOTE | 2018-03-14 05:44 | CT ---
EXAM DATE: 03/14/2018 5:15 AM EDT AGE/SEX: 62 years / Female INDICATIONS: Left side abdominal pain, evaluate for mesenteric ischemia. CLINICAL DATA: This is the patient's initial encounter. Patient reports that signs and symptoms have been present for 1 day and indicates a pain score of 10/10. MEDICAL/SURGICAL HISTORY: Hypertension. Inguinal hernia. None. RADIATION DOSE: 7.77 CTDI (mGy) COMPARISON: No prior exams available for comparison. TECHNIQUE: Volumetric scanning was performed using a multi-row detector CT scanner during bolus infu shannan of 100 ml Omnipaque 350 (iohexol) nonionic water-soluble contrast as a single exam dose. . The data was post processed with a variety of visualization algorithms including full volume maximum int ensity projection, multi-planar sliding thin slab reformation, curved planar reformation, and surface rendering techniques. Using automated exposure control and adjustment of the mA and/or kV according to patient size, radiation dose was kept as low as reasonably achievable to obtain optimal diagnosti c quality images. DICOM format image data is available electronically for review and comparison. FINDINGS: Abdominal Aorta: Abdominal aorta is normal in caliber throughout its length. There is a single left w ith a main and accessory right renal artery. Renal vessels are all patent. There is some mild central stenosis of the celiac with inferior displacement of the same possibly representing impression from the median arcuate ligament. However, the SMA and RAMONITA are widely patent Pelvis: Iliac vessels are patent bilaterally with no significant atherosclerotic calcification Miscellaneous: Patient is status post cholecystectomy and probable hysterectomy. Large amount of stoo l is identified in the ascending and transverse portions of the colon with a discrete transition near the splenic flexure. The entire descending and sigmoid portions of the colon are decompressed. Nonsp ecific 3.9 cm cyst in the expected location of the right adnexa. The appendix is identified and is ra diographically normal. CONCLUSION: 1. Large amount of stool in the ascending and transverse portions of the colon with a discrete trans ition at the splenic flexure. Descending colon is decompressed. No obvious mass lesion. Endoscopy may be warranted for further evaluation of this region. 2. I do not see CT findings of mesenteric ischemia. There may be mild impression of the median arcua te ligament on the central portion of the celiac axis but the celiac, SMA and RAMONITA are all patent. 3. 3.9 cm right adnexal cyst. In a 62-year-old woman, this warrants follow-up. I would recommend a p elvic ultrasound in 3 months to ensure stability. Electronically signed by: Fuad Chance MD 03/14/2018 5:42 AM EDT
[2018-03-14] MEDS ORDERED: Bisacodyl 10 MG Supp RECTAL PRN (06:15)
[2018-03-14] MEDS: Sod Chloride 0.9% Inj 1,000 ML IV.CONT SCH ×3 (07:59→21:46)
[2018-03-14] MEDS: Morphine Inj 4 MG/ML Vial IV.PUSH PRN ×3 (07:59→21:45)
--- NOTE | 2018-03-14 09:18 | P.HP ---
History of Present Illness Service: [facility] Primary Care Physician: Paulino Venegas Chief Complaint: Abdominal pain History of Present Illness: Patient is a very pleasant 62-year-old female with history of hypertension who last Saturday 3 days prior to admission started complaining of lower abdominal pain radiating to the mainly on the left lower quadrant area radiating to the left upper quadrant area to of epigastric which she described like severe tightening up. This was worse with movement with deep breaths cannot even move with slight movements. Feels bloating and feels badly getting "big", pain so severe that prompted patient to come in here and was admitted for further evaluation. Patient denies any nausea vomiting fever or chills. States her bowel movements are irregular usually every 2-3 days. Denies any straining denies any hematochezia or melena. Denies any reflux symptoms. Patient states she had a colonoscopy done in 2002 which was reportedly normal. On ER evaluation here at the ER CAT scan of the abdomen showed no mesenteric ischemia, significant amount of stools all the way up to the splenic flexure. Patient currently states passing out very little flatus. But denies any nausea or vomiting. Appears comfortable at this time. Patient states her last bowel movement was about a week ago. [facility] - History History Provided By: Patient - Medical History Medical History: Medical History (Last Reviewed 03/14/18 @ 05:30 by Reynaldo Alarcon MD) Hernia, inguinal Hypertension Wrist fracture - Surgical History Surgical History: Surgical History (Last Reviewed 03/14/18 @ 05:30 by Reynaldo Alarcon MD) History of mandibular surgery Hx of section - Tobacco History Second Hand Smoke Exposure: No Tobacco Use In Past 30 Days: Yes Smoking Status: Current some day smoker Tobacco Type: Cigarettes - Alcohol History How Often Do You Have a Drink Containing Alcohol: 2 to 4 times a month - Substance Use History Substance History: No History of Abuse - Travel History Recent Travel in the [facility] Within the Last 8 Weeks: No - Immunization History Tetanus Immunization: Unsure Hx Influenza Vaccine This Season: No Medications and Allergies Active Medications: Active Medications Al Hydroxide/Mg Hydroxide (Milk Of Magnadelia Liq) 30 ml PO Q12H PRN PRN Reason: Mild Constipation Last Admin: 03/14/18 07:58 Dose: 30 ml Bisacodyl (Dulcolax Supp) 10 mg RECTAL DAILY PRN PRN Reason: SEVERE CONSITIPATION Last Admin: 03/14/18 07:59 Dose: 10 mg Heparin Sodium (Porcine) (Heparin Inj) 5,000 units SQ Q8HR [facility] Sodium Chloride (Ns Inj) 1,000 mls @ 0 mls/hr IV.SIG BOLUS [facility] Last Infusion: 03/14/18 04:41 Dose: Infused Sodium Chloride (Ns Inj) 1,000 mls @ 100 mls/hr IV.CONT .Q10H [facility] Last Admin: 03/14/18 07:59 Dose: 100 mls/hr Lactulose (Lactulose Liq) 30 ml PO DAILY [facility] Morphine Sulfate (Morphine Inj) 4 mg IV.PUSH Q4H PRN PRN Reason: pain > 5 Last Admin: 03/14/18 07:59 Dose: 4 mg Ondansetron HCl (Zofran Inj) 4 mg IV.PUSH Q6H PRN PRN Reason: NAUSEA OR VOMITING Polyethylene Glycol (Miralax) 17 gm PO DAILY [facility] Sennosides (Senokot) 17.2 mg PO Q12H PRN PRN Reason: Moderate Constipation Last Admin: 03/14/18 07:59 Dose: 17.2 mg Sodium Chloride (Ns Flush) 2 ml IV.FLUSH PRN PRN PRN Reason: FLUSH AFTER USING IV ACCESS Allergies Allergy/AdvReac Type Severity Reaction Status Date / Time ceftriaxone Allergy Severe Itching Verified 04/14/17 11:17 erythromycin base Allergy Severe Nausea/Vomi Verified 04/14/17 11:17 ting Penicillins Allergy Severe Itching Verified 04/14/17 11:17 Home Medications Medication Instructions Recorded Confirmed Type amlodipine [Norvasc] 10 mg PO DAILY 03/14/18 03/14/18 History clonidine HCl 0.2 mg PO TID 03/14/18 03/14/18 History Exam Vital signs: Vital Signs 03/14/18 03:08 03/14/18 03:20 03/14/18 04:09 Temperature 99.1 F Pulse Rate 94 H 93 H Respiratory Rate 18 18 16 Blood Pressure 158/77 H 145/73 H Pulse Oximetry 99 99 03/14/18 05:30 03/14/18 07:30 03/14/18 08:27 Temperature 98.6 F Pulse Rate 86 88 70 Respiratory Rate 18 20 20 Blood Pressure 151/72 H 150/70 H 148/60 H Pulse Oximetry 96 96 Intake & Output 03/13/18 03/14/18 03/14/18 18:59 06:59 18:59 Intake Total 1000 / 1000 0 / 0 Balance 1000 / 1000 0 / 0 Weight 81 kg Intake: IV 1000 / 1000 NS Inj 1,000 ML @ Wide Open IV. 1000 / 1000 SIG BOLUS [facility] Rx#:[id number] Oral 0 / 0 Other: Date of Last Bowel Movement 03/13/18 Narrative: Patient is awake alert oriented 3 not in any form of distress Anicteric sclerae Neck was supple no nuchal rigidity Chest lungs bilateral breath sounds equal no rales no wheezes Heart regular rhythm no murmur Abdomen is soft but distended no guarding no rigidity not tender on exam currently Extremities no edema Neurologic exam is nonfocal Results - Labs CBC & Chem 7: 03/15/18 18:29 03/15/18 18:29 Labs: Laboratory Results - last 24 hr 03/14/18 03/14/18 03/14/18 03:37 03:37 03:37 WBC 9.4 RBC 3.83 L Hgb 10.6 L Hct 30.6 L MCV 79.9 L MCH 27.7 MCHC 34.7 RDW 13.9 Plt Count 266 MPV 7.4 Neut % (Auto) 69.7 Lymph % (Auto) 15.4 [place] % (Auto) 11.4 H Eos % (Auto) 2.8 Baso % (Auto) 0.7 Neut # (Auto) 6.6 Lymph # (Auto) 1.4 [place] # (Auto) 1.1 H Eos # (Auto) 0.3 Baso # (Auto) 0.1 WBC Differential . Differential Comment Auto diff final Sodium 143 Potassium 3.6 Chloride 106 Carbon Dioxide 27.5 Anion Gap 10 BUN 11 Creatinine 0.83 Estimated GFR 84 L Random Glucose 108 H Lactic Acid 1.1 Calcium 8.6 Total Bilirubin 0.3 AST 16 ALT 20 Alkaline Phosphatase 110 Troponin I Less than 0.02 L Total Protein 7.9 Albumin 3.2 L Lipase 68 L - Imaging Impressions Abdomen CTA 03/14/18 03:56 CONCLUSION: 1. Large amount of stool in the ascending and transverse portions of the colon with a discrete transition at the splenic flexure. Descending colon is decompressed. No obvious mass lesion. Endoscopy may be warranted for further evaluation of this region. 2. I do not see CT findings of mesenteric ischemia. There may be mild impression of the median arcuate ligament on the central portion of the celiac axis but the celiac, SMA and RAMONITA are all patent. 3. 3.9 cm right adnexal cyst. In a 62-year-old woman, this warrants follow-up. I would recommend a pelvic ultrasound in 3 months to ensure stability. Caprini VTE Risk Assessment Caprini VTE Risk Assessment: No/Low Risk (score <= 1) Caprini Risk Assessment Model: Point Value = 1 Point Value = 2 Point Value = 3 Point Value = 5 Age 41-60 Minor surgery BMI > 25 kg/m2 Swollen legs Varicose veins or History of unexplained or recurrent spontaneous Oral contraceptives or hormone replacement Sepsis (< 1 month) Serious lung disease, including pneumonia (< 1 month) Abnormal pulmonary function Acute myocardial infarction Congestive heart failure (< 1 month) History of inflammatory bowel disease Medical patient at bed rest Age 61-74 Arthroscopic surgery Major open surgery (> 45 min) Laparoscopic surgery (> 45 min) Malignancy Confined to bed (> 72 hours) Immobilizing plaster cast Central venous access Age >= 75 History of VTE Family history of VTE Factor V Leiden Prothrombin [id number] Lupus anticoagulant Anticardiolipin antibodies Elevated serum homocysteine Heparin-induced thrombocytopenia Other congenital or acquired thrombophilia Stroke (< 1 month) Elective arthroplasty Hip, pelvis, or leg fracture Acute spinal cord injury (< 1 month) Prophylaxis Regimen: Total Risk Factor Score Risk Level Prophylaxis Regimen 0-1 Low Early ambulation 2 Moderate Order ONE of the following: *Sequential Compression Device (SCD) *Heparin 5000 units SQ BID 3-4 Higher Order ONE of the following medications: *Heparin 5000 units SQ TID *Enoxaparin/Lovenox 40 mg SQ daily (WT < 150 kg, CrCl > 30 mL/min) *Enoxaparin/Lovenox 30 mg SQ daily (WT < 150 kg, CrCl > 10-29 mL/min) *Enoxaparin/Lovenox 30 mg SQ BID (WT < 150 kg, CrCl > 30 mL/min) AND/OR *Sequential Compression Device (SCD) 5 or more Highest Order ONE of the following medications: *Heparin 5000 units SQ TID (Preferred with Epidurals) *Enoxaparin/Lovenox 40 mg SQ daily (WT < 150 kg, CrCl > 30 mL/min) *Enoxaparin/Lovenox 30 mg SQ daily (WT < 150 kg, CrCl > 10-29 mL/min) *Enoxaparin/Lovenox 30 mg SQ BID (WT < 150 kg, CrCl > 30 mL/min) AND *Sequential Compression Device (SCD) Assessment and Plan - Plan 62-year-old female presenting with abdominal pain, no nausea no vomiting, no reflux symptoms no weight loss with constipation. Patient denies any use of narcotics or pain meds. Abdominal pain likely from impacted stools. chronic Constipation likely etiology. -No nausea no vomiting. no heamtochezia, no melena. Little flatus though. -On imaging studies stools all the way up to the splenic flexure. We will order for lactulose. MiraLAX. fleet enema. If no stools with above regimen - may need colonoscopy consider GI consult for ? colonoscopy vs barium enema clear liquids Hypertension. Continue on amlodipine 10 mg daily. Continue on clonidine 0.2 mg 3 times daily Encourage patient up and ambulate. SQ heparin
[2018-03-14] MEDS ORDERED: Sod Phosphate/Sod Biphosphate (Adult) Enema 133 ML Bottle RECTAL ONE (10:00)
[2018-03-14] MEDS: Polyethylene Glycol 3350 17 GM Packet PO SCH (11:01)
[2018-03-14] MEDS: amLODIPine 10 MG Tablet PO SCH (11:01)
[2018-03-14] MEDS: Heparin - SQ 10,000 UNITS/ML Vial SQ SCH ×2 (14:12→21:44)
[2018-03-15] MEDS: Sod Chloride 0.9% Inj 1,000 ML IV.CONT SCH ×2 (03:48→14:47)
[2018-03-15] MEDS: Heparin - SQ 10,000 UNITS/ML Vial SQ SCH (05:44)
[2018-03-15] MEDS: Morphine Inj 4 MG/ML Vial IV.PUSH PRN ×4 (06:26→19:59)
--- NOTE | 2018-03-15 08:07 | P.PN ---
Subjective Interval history: pain better - still bloating abdominal fullness sensation no nausea or vomiting did have some BM- "hard, strained" + flatus seen toilet bowl- with 2 round brown hard stools couple Physical Exam Vital signs: Vital Signs 03/14/18 08:27 03/14/18 13:07 03/14/18 14:15 Temperature 98.6 F 97.9 F Pulse Rate 70 78 Respiratory Rate 20 18 18 Blood Pressure 148/60 H 128/62 Pulse Oximetry 96 96 03/14/18 17:12 03/14/18 20:00 03/15/18 00:00 Temperature 98.2 F 99.2 F 99.1 F Pulse Rate 80 86 77 Respiratory Rate 20 16 16 Blood Pressure 130/60 133/80 132/87 Pulse Oximetry 98 96 95 03/15/18 04:00 Temperature 98.3 F Pulse Rate 73 Respiratory Rate 16 Blood Pressure 117/74 Pulse Oximetry 94 L Intake & Output 03/14/18 03/15/18 03/15/18 18:59 06:59 18:59 Intake Total 774 / 774 3200 / 3200 Balance 774 / 774 3200 / 3200 Intake: IV 774 / 774 1999 NS Inj 1,000 ML @ 100 mls/hr IV 774 / 774 1999 .CONT .Q10H [facility] Rx#:[id number] Oral 0 / 0 Other 1200 / 1200 Other: Other Intake Source Saline Solution # Voids 2 Date of Last Bowel Movement 03/13/18 03/13/18 # Bowel Movements 0 Narrative: awake and alert, no acute distress anciteric lungs- no rales regular rhythm abdomen soft, nontender, good bowel sounds extrmeities no edema neuro exam- unremarkable Results - Labs CBC & Chem 7: 03/15/18 18:29 03/15/18 18:29 Assessment and Plan - Plan 62-year-old female presenting with abdominal pain, no nausea no vomiting, no reflux symptoms no weight loss with constipation. Patient denies any use of narcotics or pain meds. Abdominal pain likely from impacted stools. chronic Constipation likely etiology. -No nausea no vomiting. no hematochezia, no melena. + Flatus- slight -On imaging studies stools all the way up to the splenic flexure. -given on lactulose. MiraLAX. fleet enema. yesterday- did have small amount of hrd stools- - still feels full and distended subjectively - will give x 1 golytely - GI consult for colonosocpy - clear liquids- today. NPO post midnight Hypertension. Continue on amlodipine 10 mg daily. Continue on clonidine 0.2 mg 3 times daily Encourage patient up and ambulate. - patient up and ambulating SQ heparin- hold- possible scope
[2018-03-15] MEDS ORDERED: PEG 3350/E-Lyte Soln 4000 ML Bottle PO ONE (08:08)
[2018-03-15] MEDS: Polyethylene Glycol 3350 17 GM Packet PO SCH (08:26)
[2018-03-15] MEDS: amLODIPine 10 MG Tablet PO SCH (08:27)
--- NOTE | 2018-03-15 17:29 | ECG ---
Date Performed: 03/14/2018 Time Performed: 03:45:23 PTAGE: 62 years EKG: Sinus rhythm NORMAL ECG PREVIOUS TRACING : 11/01/2017 15.48 DOCTOR: [place] Interpretating Date/Time 03/15/2018 17:27:09
[2018-03-15 19:17] LABS: Baso # (Auto) 0.1 th/mm3 (0.0-0.2); Baso % (Auto) 0.9 % (0.0-2.0); Eos # (Auto) 0.1 th/mm3 (0.0-0.4); Eos % (Auto) 1.4 % (0.0-4.0); Hematocrit 36.3 % (35.0-46.0); Lymph # (Auto) 1.7 th/mm3 (1.0-4.8); Lymph % (Auto) 19.5 % (9.0-44.0); Mean Corpuscular Hemoglobin 26.5 pg (27.0-34.0); Mean Corpuscular Volume 80.5 fL (80.0-100.0); Mean Platelet Volume 7.6 fL (7.0-11.0); Mono # (Auto) 0.7 th/mm3 (0.0-0.9); Mono % (Auto) 8.2 % (0.0-8.0); Platelet Count 350 th/mm3 (150-450); Red Blood Count 4.51 mil/mm3 (4.00-5.30); Red Cell Distribution Width 14.1 % (11.6-17.2); White Blood Count 8.6 th/mm3 (4.0-11.0)
[2018-03-15 19:30] LABS: Anion Gap 9 meq/L (5-15); Blood Urea Nitrogen 5 mg/dL (7-18); Calcium 8.8 mg/dL (8.5-10.1); Carbon Dioxide 26.2 meq/L (21.0-32.0); Chloride 106 meq/L (98-107); Glomerular Filtration Rate Greater Than 89 mL/min (>89); Glucose,Random 86 mg/dL (74-106); Potassium 3.7 meq/L (3.5-5.1); Sodium 141 meq/L (136-145)
--- NOTE | 2018-03-15 23:53 | P.CONGI ---
History of Present Illness Consult date: 03/15/18 Consult reason: Constipation Chief complaint: Intractable Abdominal Pain, Constipation History of Present Illness: Patient is a 62-year-old female who presents with complaints of lower abdominal pain mostly to the left side with radiation to the back mostly instigated with posture motion patient does report history of back trauma many years ago apparently she fell from third floor and sustained some fractures at the time she also reports that she has not had a bowel movement in over a week she claims that this is usual for her to not go frequently for bowel movements her stools are small and hard she does report having had a colonoscopy back in 2002 and apparently that was normal at the time the patient denies any nausea vomiting diarrhea she also denies any melena or hematochezia hematemesis or coffee-ground emesis she also denies any change in appetite or weight loss Review of Systems All other systems reviewed negative except as stated in HPI [facility] - History History Provided By: Patient - Medical History Medical History: Medical History (Last Reviewed 03/14/18 @ 05:30 by Reynaldo Alarcon MD) Hernia, inguinal Hypertension Wrist fracture - Surgical History Surgical History: Surgical History (Last Reviewed 03/14/18 @ 05:30 by Reynaldo Alarcon MD) History of mandibular surgery Hx of section - Tobacco History Second Hand Smoke Exposure: No Tobacco Use In Past 30 Days: Yes Smoking Status: Current some day smoker Tobacco Type: Cigarettes - Alcohol History How Often Do You Have a Drink Containing Alcohol: 2 to 4 times a month - Substance Use History Substance History: No History of Abuse - Travel History Recent Travel in the [facility] Within the Last 8 Weeks: No - Immunization History Tetanus Immunization: Unsure Hx Influenza Vaccine This Season: No Medications and Allergies Active Medications: Active Medications Al Hydroxide/Mg Hydroxide (Milk Of Magnesia Liq) 30 ml PO Q12H PRN PRN Reason: Mild Constipation Last Admin: 03/14/18 07:58 Dose: 30 ml Amlodipine Besylate (Norvasc) 10 mg PO DAILY [facility] Last Admin: 03/15/18 08:27 Dose: 10 mg Bisacodyl (Dulcolax Supp) 10 mg RECTAL DAILY PRN PRN Reason: SEVERE CONSITIPATION Last Admin: 03/14/18 07:59 Dose: 10 mg Clonidine HCl (Catapres) 0.2 mg PO Q8HR [facility] Last Admin: 03/15/18 21:14 Dose: 0.2 mg Sodium Chloride (Ns Inj) 1,000 mls @ 0 mls/hr IV.SIG BOLUS [facility] Last Infusion: 03/14/18 04:41 Dose: Infused Sodium Chloride (Ns Inj) 1,000 mls @ 100 mls/hr IV.CONT .Q10H [facility] Last Infusion: 03/15/18 18:49 Dose: 100 mls/hr Lactulose (Lactulose Liq) 30 ml PO DAILY [facility] Last Admin: 03/15/18 08:27 Dose: 30 ml Morphine Sulfate (Morphine Inj) 1 mg IV.PUSH Q4H PRN PRN Reason: pain > 5 Last Admin: 03/15/18 19:59 Dose: 1 mg Ondansetron HCl (Zofran Inj) 4 mg IV.PUSH Q6H PRN PRN Reason: NAUSEA OR VOMITING Polyethylene Glycol (Miralax) 17 gm PO DAILY [facility] Last Admin: 03/15/18 08:26 Dose: 17 gm Sennosides (Senokot) 17.2 mg PO Q12H PRN PRN Reason: Moderate Constipation Last Admin: 03/14/18 07:59 Dose: 17.2 mg Sodium Chloride (Ns Flush) 2 ml IV.FLUSH PRN PRN PRN Reason: FLUSH AFTER USING IV ACCESS Allergies Allergy/AdvReac Type Severity Reaction Status Date / Time ceftriaxone Allergy Severe Itching Verified 04/14/17 11:17 erythromycin base Allergy Severe Nausea/Vomi Verified 04/14/17 11:17 ting Penicillins Allergy Severe Itching Verified 04/14/17 11:17 Home Medications Medication Instructions Recorded Confirmed Type amlodipine [Norvasc] 10 mg PO DAILY 03/14/18 03/14/18 History clonidine HCl 0.2 mg PO TID 03/14/18 03/14/18 History Exam Vital signs: Vital Signs 03/15/18 00:00 03/15/18 04:00 03/15/18 08:00 Temperature 99.1 F 98.3 F 98.4 F Pulse Rate 77 73 84 Respiratory Rate 16 16 16 Blood Pressure 132/87 117/74 136/72 Pulse Oximetry 95 94 L 99 03/15/18 12:00 03/15/18 16:00 03/15/18 20:00 Temperature 98.2 F 98.9 F 98.7 F Pulse Rate 80 79 73 Respiratory Rate 14 16 18 Blood Pressure 145/85 H 131/75 140/82 Pulse Oximetry 98 97 95 Intake & Output 03/15/18 03/15/18 03/16/18 06:59 18:59 06:59 Intake Total 3200 / 3200 780 / 780 Balance 3200 / 3200 780 / 780 Intake: IV 1999 780 / 780 NS Inj 1,000 ML @ 100 mls/hr IV 1999 780 / 780 .CONT .Q10H [facility] Rx#:[id number] Other 1200 / 1200 Other: Other Intake Source Saline Solution Date of Last Bowel Movement 03/13/18 03/14/18 - Constitutional no acute distress - Routine HEENT Exam Head: Present: normocephalic Eye: Present: EOMI ENT: Present: mucous membranes moist - Routine Neck Exam Present: supple - Routine Respiratory Exam Present: CTA bilaterally - Routine Cardiovascular Exam Present: RRR - Routine Abdominal Exam Present: soft, normoactive bowel sounds - Routine Extremities Exam Absent: cyanosis, clubbing, edema Results - Labs CBC & Chem 7: 03/15/18 18:29 03/15/18 18:29 Labs: Laboratory Results - last 24 hr 03/15/18 03/15/18 18:29 18:29 WBC 8.6 RBC 4.51 Hgb 12.0 Hct 36.3 MCV 80.5 MCH 26.5 L MCHC 33.0 RDW 14.1 Plt Count 350 D MPV 7.6 Neut % (Auto) 70.0 Lymph % (Auto) 19.5 [place] % (Auto) 8.2 H Eos % (Auto) 1.4 Baso % (Auto) 0.9 Neut # (Auto) 6.0 Lymph # (Auto) 1.7 [place] # (Auto) 0.7 Eos # (Auto) 0.1 Baso # (Auto) 0.1 WBC Differential . Differential Comment Auto diff final Sodium 141 Potassium 3.7 Chloride 106 Carbon Dioxide 26.2 Anion Gap 9 BUN 5 L Creatinine 0.75 Estimated GFR Greater than 89 Random Glucose 86 Calcium 8.8 Assessment and Plan - Plan Patient presenting with complaints of lower abdominal pain mostly localized to the left and radiating to the back with known history of trauma and probable underlying chronic back pains in addition to her pain there is also constipation and this is of unclear significance at this point I do note that she is on amlodipine which may contribute to constipation At this point best approach would be to clean out the colon using GoLYTELY and to pursue a colonoscopy once that is done If pain persists and no findings on colonoscopy or endoscopy I would recommend back x-rays to further evaluate the possibility that this pain may be from back origin Further recommendations she will depend on her hospital course
[2018-03-16] MEDS: Morphine Inj 4 MG/ML Vial IV.PUSH PRN ×2 (00:49→06:04)
[2018-03-16] MEDS: Sod Chloride 0.9% Inj 1,000 ML IV.CONT SCH ×2 (00:58→10:42)
[2018-03-16 07:41] VITALS: RESP 16; TEMP 98.7
[2018-03-16] MEDS: amLODIPine 10 MG Tablet PO SCH (08:22)
[2018-03-16] MEDS: Polyethylene Glycol 3350 17 GM Packet PO SCH (08:22)
[2018-03-16] MEDS ORDERED: Morphine Inj 4 MG/ML Vial IV.PUSH PRN (08:57)
--- NOTE | 2018-03-16 09:24 | P.PN ---
Subjective Interval history: feeling a lot better passing lots of flatus no abdominal apin, nausea or vomting up and ambulating "hungry" Physical Exam Vital signs: Vital Signs 03/15/18 12:00 03/15/18 16:00 03/15/18 20:00 Temperature 98.2 F 98.9 F 98.7 F Pulse Rate 80 79 73 Respiratory Rate 14 16 18 Blood Pressure 145/85 H 131/75 140/82 Pulse Oximetry 98 97 95 03/16/18 00:00 03/16/18 04:00 03/16/18 07:40 Temperature 98.2 F 98.5 F 98.7 F Pulse Rate 73 73 65 Respiratory Rate 16 18 16 Blood Pressure 129/67 150/80 H 122/72 Pulse Oximetry 95 99 99 03/16/18 08:00 Temperature Pulse Rate Respiratory Rate 16 Blood Pressure Pulse Oximetry Intake & Output 03/15/18 03/16/18 03/16/18 18:59 06:59 18:59 Intake Total 780 / 780 1000 / 1000 Balance 780 / 780 1000 / 1000 Intake: IV 780 / 780 1000 / 1000 NS Inj 1,000 ML @ 100 mls/hr IV 780 / 780 1000 / 1000 .CONT .Q10H [facility] Rx#:[id number] Other: # Voids 1 Date of Last Bowel Movement 03/14/18 03/14/18 Narrative: awake and alert, no acute distress anciteric lungs- no rales regular rhythm abdomen softer, nontender, good bowel sounds, no guarding extrmeities no edema neuro exam- unremarkable rectal exam- - tight sphincter tone, no stools on rectal vault palpalbe Results - Labs CBC & Chem 7: 03/15/18 18:29 03/15/18 18:29 Laboratory Results - last 24 hr 03/15/18 03/15/18 18:29 18:29 WBC 8.6 RBC 4.51 Hgb 12.0 Hct 36.3 MCV 80.5 MCH 26.5 L MCHC 33.0 RDW 14.1 Plt Count 350 D MPV 7.6 Neut % (Auto) 70.0 Lymph % (Auto) 19.5 [place] % (Auto) 8.2 H Eos % (Auto) 1.4 Baso % (Auto) 0.9 Neut # (Auto) 6.0 Lymph # (Auto) 1.7 [place] # (Auto) 0.7 Eos # (Auto) 0.1 Baso # (Auto) 0.1 WBC Differential . Differential Comment Auto diff final Sodium 141 Potassium 3.7 Chloride 106 Carbon Dioxide 26.2 Anion Gap 9 BUN 5 L Creatinine 0.75 Estimated GFR Greater than 89 Random Glucose 86 Calcium 8.8 Assessment and Plan - Plan 62-year-old female presenting with abdominal pain, no nausea no vomiting, no reflux symptoms no weight loss with constipation. Patient denies any use of narcotics or pain meds. Abdominal pain likely from Constipation- etiology.- patient with chronic constipation Passing lots of stools now overnight, had BM yesterday -No nausea no vomiting. no hematochezia, no melena. -On imaging studies stools all the way up to the splenic flexure. -given on lactulose. MiraLAX. fleet enema. yesterday- did have small amount of hrd stools- - still feels full and distended subjectively - contrinue bowel regimen, add colace bid - GI ff- plan for colonosocpy- today vs OP - advise on high fibre diet Hypertension. Continue on amlodipine 10 mg daily. Continue on clonidine 0.2 mg 3 times daily Encourage patient up and ambulate. - patient up and ambulating SQ heparin- hold- possible scope DC home today PCP- Dr. Roberto lane OP ff up with GI add: patient had a huge large amount of bm- large good formed brown some loose this am after meds feels 100 % better d/w her po fkluids, high fibre diet and bowel regime OP referral through PCP- to Dr Pantoja for colonsoocpy patient expressed understanding
[2018-03-16] MEDS ORDERED: Docusate Sodium 100 MG Capsule PO SCH (10:00)
[2018-03-16 11:36] VITALS: BP 137/81; PULSE 72; O2SAT 98
== END 2018-03-16 16:36 | disposition home or self-care (01) ==
LOC: NEPC 02:59 → NEDA 02:59 → NEPFCDU 07:30
PROVIDERS: ADMIT Internal Medicine; ATTEND Internal Medicine